=== PATIENT | male | born 1945 | race Caucasian/White ===

== ENCOUNTER 2016-06-14 21:47 | Emergency (ER) | payer OTHER | END 2016-06-14 22:10 | disposition home or self-care (01) | LOC: ER 21:47 | DX: M70.31 Other bursitis of elbow, right elbow (principal); I25.10 Atherosclerotic heart disease of native coronary artery without angina pectoris; K21.9 Gastro-esophageal reflux disease without esophagitis; I10 Essential (primary) hypertension; Z79.82 Long term (current) use of aspirin; Z79.899 Other long term (current) drug therapy | CPT/HCPCS: 73080; J1885 ==